=== PATIENT | male | born 1990 | race Caucasian/White ===

== ENCOUNTER 2022-04-29 23:32 | Emergency (ER) | payer OTHER ==
[~2022-04-29 23:32] MED LIST: AMOXICILLIN500 M1 PO; BACTROBAN OINT22 GM EXT; IBUPROFEN600 MG PO; KEFLEX CAP 500500 MG PO; NAPROSYN500 MG PO; NORCO 10-325 T1 EACH PO; NORFLEX 100 MG100 MG PO; PREDNISONE 50 M50 MG PO
[2022-04-30 03:32] LABS: HEMOGLOBIN 14.2 gm/dl (14.0-17.5); RED BLOOD COUNT 5.36 M/UL (4.20-5.50)
[2022-04-30 03:53] LABS: BUN/CREATININE RATIO 16 (0-10)
== END 2022-04-30 06:55 | disposition home or self-care (01) ==
LOC: ER1 23:32
PROVIDERS: Physician Assistant
DX: R05.9 Cough, unspecified (principal); R50.9 Fever, unspecified; R52 Pain, unspecified; J45.909 Unspecified asthma, uncomplicated; Z20.822 Contact with and (suspected) exposure to COVID-19
CPT/HCPCS: 0240U; 71045; 80053; 81001; 83605; 83735; 83880; 84100; 85025; 85610; 85652; 85730; 86140; 87040; 87081; 87086; 87880; 96374; 96375; 99283; J1885